=== PATIENT | female | born 1950 | race Caucasian/White ===

== ENCOUNTER 2018-07-23 08:45 | Emergency (ER) | payer OTHER ==
[~2018-07-23] VITALS: Ht 152.4 cm; Wt 63.5 kg
[~2018-07-23 08:45] MED LIST: ASA81 MG PO; CLONAZEPAM0.5 MG PO; CRESTOR5 MG PO; FOLIC ACID1 MG PO; FOLTX TABLET1 EACH PO; INTESTINEX680 M1 PO; PAXIL20 MG PO; PROTONIX40 MG PO; TRENTRAL PO; ULTRACET PO
== END 2018-07-23 10:41 | disposition home or self-care (01) ==
LOC: ER 08:45
DX: K62.5 Hemorrhage of anus and rectum (principal); K91.841 Postprocedural hemorrhage of a digestive system organ or structure following other procedure; Y83.8 Other surgical procedures as the cause of abnormal reaction of the patient, or of later complication, without mention of misadventure at the time of the procedure; Y92.89 Other specified places as the place of occurrence of the external cause

== ENCOUNTER 2019-10-13 06:20 | Day surgery (SDC) | payer OTHER | END 2019-10-13 13:45 | disposition home or self-care (01) | LOC: CIR.AMB 06:20 → AMB-ENDOS 06:20 → CIR.AMB 12:00 → AMB-ENDOS 13:45 | PROVIDERS: ATTEND Surgery | DX: D12.2 Benign neoplasm of ascending colon (principal) ==